=== PATIENT | female | born 1995 | race Caucasian/White ===

== ENCOUNTER 2019-05-18 19:05 | Emergency (ER) | payer OTHER, MEDICAID ==
[~2019-05-18] VITALS: Ht 162.6 cm; Wt 63.5 kg
[2019-05-18 19:15] VITALS: Ht 162.6 cm; Wt 63.5 kg
[2019-05-18 21:54] VITALS: BP 121/82
== END 2019-05-18 21:54 | disposition home or self-care (01) ==
LOC: ED 19:05
DX: S46.911A Strain of unspecified muscle, fascia and tendon at shoulder and upper arm level, right arm, initial encounter (principal); Z88.0 Allergy status to penicillin; X58.XXXA Exposure to other specified factors, initial encounter; Y93.89 Activity, other specified; Y92.89 Other specified places as the place of occurrence of the external cause; Y99.8 Other external cause status

== ENCOUNTER 2019-12-26 10:27 | Emergency (ER) | payer MEDICAID ==
[~2019-12-26] VITALS: Ht 162.6 cm; Wt 64.0 kg
[2019-12-26 10:34] VITALS: Ht 162.6 cm; Wt 64.0 kg
[2019-12-26 11:46] VITALS: BP 116/51
== END 2019-12-26 11:46 | disposition home or self-care (01) ==
LOC: ED 10:27
DX: M25.511 Pain in right shoulder (principal); M54.2 Cervicalgia; N39.0 Urinary tract infection, site not specified; J45.909 Unspecified asthma, uncomplicated; Z88.0 Allergy status to penicillin
CPT/HCPCS: J1885

== ENCOUNTER 2020-11-16 13:21 | Emergency (ER) | payer MEDICAID ==
[~2020-11-16] VITALS: Ht 162.6 cm; Wt 68.0 kg
[2020-11-16 13:32] VITALS: Ht 162.6 cm; Wt 68.0 kg
[2020-11-16 14:33] LABS: microscopic required? NO
[2020-11-16 14:34] LABS: BASOPHIL % 1.3 % (0.2-1.3); PLATELET COUNT 214 x10^3mcL (179-408); RED CELL DISTRIBUTION WIDTH 12.9 % (12.3-17.7)
[2020-11-16 14:41] LABS: CALCIUM 9.1 mg/dL (8.5-10.1); CARBON DIOXIDE 25.2 mmol/L (21-32); CHLORIDE SERUM 99 mmol/L (98-107); CREATININE SERUM 0.6 mg/dL (0.6-1.0); GFR1 > 60 mL/min; GLUCOSE SERUM 78 mg/dL (74-106); POTASSIUM SERUM 3.5 mmol/L (3.5-5.1); SODIUM SERUM 136 mmol/L (136-145)
[2020-11-16 14:43] LABS: UA SPECIFIC GRAVITY 1.015 (1.005-1.035); urine erythrocyte NEGATIVE (NEGATIVE)
[2020-11-16 14:45] LABS: ALBUMIN 3.8 g/dL (3.4-5.0); ALKALINE PHOSPHATASE 56 U/L (46-116); ALT/SGPT 16 U/L (14-59); AST/SGOT 11 U/L (15-37); BILIRUBIN TOTAL 0.6 mg/dL (0.20-1.00); LIPASE 59 IU/L (73-393); TOTAL PROTEIN, SERUM 7.7 g/dL (6.4-8.2)
[2020-11-16 19:31] VITALS: BP 107/59
== END 2020-11-16 19:31 | disposition home or self-care (01) ==
LOC: ED 13:21
PROVIDERS: Student in an Organized Health Care Education/Training Program
DX: O34.81 Maternal care for other abnormalities of pelvic organs, first trimester (principal); N83.201 Unspecified ovarian cyst, right side; Z3A.01 Less than 8 weeks gestation of pregnancy
CPT/HCPCS: 85378; 87491; 87591; J7030